=== PATIENT | female | born 1975 | race Caucasian/White ===

== ENCOUNTER 2023-05-29 10:02 | Outpatient (CLI) | payer OTHER, SELFPAY ==
--- NOTE | 2023-05-29 11:00 | NEURO_ITS ---
Impression: # Non-diabetic complains of severe back pain. # Normal motor/sensory Nerve Conduction Study. # Needle/EMG exam of left EDB abnormal with neurogenic changes. # Clinical correlation recommended; Higher involvement needs to be ruled out. Nerve Conduction Studies Anti Sensory Summary Table Stim Site NR Peak (ms) P-T Amp (?V) Site1 Site2 Delta-P (ms) Dist (cm) Terry (m/s) Left Saphenous Anti Sensory (Ant Med Mall) 14cm 3.9 6.0 14cm Ant Med Mall 3.9 0.0 Left Sup Fibular Anti Sensory (Ant Lat Mall) 14 cm 3.4 11.7 14 cm Ant Lat Mall 3.4 16.0 47 Left Sural Anti Sensory (Lat Mall) Calf 3.9 16.1 Calf Lat Mall 3.9 16.0 41 Motor Summary Table Stim Site NR Onset (ms) O-P Amp (mV) Site1 Site2 Delta-0 (ms) Dist (cm) Terry (m/s) Left Peroneal Motor (Vastus Med) Ankle 4.1 1.4 Popit Ankle 9.1 39.0 43 Popit 13.2 1.0 Left Tibial Motor (Abd Morel Brev) Ankle 5.8 2.3 Knee Ankle 8.8 40.0 45 Knee 14.6 2.7 F Wave Studies NR F-Lat (ms) L-R F-Lat (ms) Left Peroneal (Mrkrs) (EDB) 55.82 Left Tibial (Mrkrs) (Abd Hallucis) 58.44 EMG Side Muscle Nerve Root Ins Act Fibs Amp Dur Recrt Comment Left AntTibialis Dp Br Fibular L4-5 Nml Nml Nml Nml Nml Left Gastroc Tibial S1-2 Nml Nml Nml Nml Nml Left Fibularis Long Sup Br Fibular L5-S1 Nml Nml Nml Nml Nml Left Flex Dig Long Tibial L5-S2 Nml Nml Nml Nml Nml Left Ext Dig Brev Dp Br Fibular L5, S1 Nml Nml Nml >12ms Reduced Left QuadratusFem QuadFemoris L4-5, S1 Nml Nml Nml Nml Nml MTDD
== END 2023-05-29 10:03 | disposition home or self-care (01) ==
LOC: ANHNEURO 10:04
PROVIDERS: PCP Internal Medicine Geriatric Medicine; Visit Provider Internal Medicine Geriatric Medicine
DX: M21.372 Foot drop, left foot (principal); M54.16 Radiculopathy, lumbar region; M54.9 Dorsalgia, unspecified
CPT/HCPCS: 95886; 95909